=== PATIENT | male | born 1945 | race Caucasian/White ===

== ENCOUNTER 2017-12-12 08:47 | Emergency (ER) | payer OTHER ==
[~2017-12-12] VITALS: Ht 172.7 cm; Wt 102.1 kg
[2017-12-12 09:39] LABS: ABSOLUTE BASOPHIL COUNT 0 /CUMM (0.0-0.2); ABSOLUTE EOSINOPHIL COUNT 0.1 /CUMM (0.0-0.7); ABSOLUTE GRANULOCYTE CT 2.9 /CUMM (1.4-6.5); ABSOLUTE LYMPH COUNT 1.6 /CUMM (1.2-3.4); ABSOLUTE MONOCYTE COUNT 0.4 /CUMM (0.10-0.60); BASOPHIL % 0.4 % (0.0-2.0); EOSINOPHIL % 2.9 % (0-5); MEAN CORPUSCULAR HGB 32.9 PG (27.0-31.0); MEAN CORPUSCULAR HGB CONC 33.6 G/DL (33.0-37.0); MEAN CORPUSCULAR VOLUME 97.9 FL (80.0-94.0); MEAN PLATELET VOLUME 8.2 FL (7.4-10.4); PLATELET COUNT 177 /CUMM (130-400); RBC DISTRIBUTION WIDTH 13.3 % (11.5-14.5); RED BLOOD CELL CT 4.59 /CUMM (4.70-6.10); WHITE BLOOD CELL COUNT 5.1 /CUMM (4.8-10.8)
--- NOTE | 2017-12-12 11:30 | CT SCAN REPORT ---
EXAMINATION: CT HEAD WITHOUT CONTRAST CLINICAL INFORMATION: Dizziness. COMPARISON: None TECHNIQUE: Contiguous axial imaging was performed from the skull base to vertex without intravenous administration of contrast. DLP: 614 mGy-cm FINDINGS: There is no evidence of acute intracranial hemorrhage or territorial infarction. No abnormal mass effect or midline shift is seen. Martinez to white matter differentiation is well preserved. No extra-axial fluid collections are identified. The ventricles are normal in size. There is no abnormal attenuation within the brain parenchyma. The osseous structures and soft tissues are normal. The mastoid air cells and visualized portions of the paranasal sinuses are well aerated. IMPRESSION: No acute intracranial process seen.
--- NOTE | 2017-12-12 11:40 | ED AMS/SEIZURE/WEAK/DIZZY ---
History of Present Illness General Chief Complaint: Dizziness Stated Complaint: DIZZINESS Source: patient Exam Limitations: no limitations Vital Signs & Intake/Output Vital Signs & Intake/Output Vital Signs Date Time Temp Pulse Resp B/P B/P Pulse O2 O2 Flow FiO2 Mean Ox Delivery Rate 12/12 1328 56 18 146/82 12/12 1207 175/97 12/12 1054 97.0 55 20 175/97 100 Room Air 12/12 0921 97.7 51 20 206/108 96 Room Air Allergies Coded Allergies: Penicillins (UNKNOWN PER PT HAD A REACTION A KID 12/12/17) venom-honey bee (SOB 12/12/17) Reconcile Medications Aspirin (Ecotrin*) 81 MG TABLET.DR 1 TAB PO DAILY HEART/BLOOD (Reported) Losartan Potassium (Cozaar) 50 MG TABLET 1 TAB PO DAILY HTN Meclizine HCl 25 MG TABLET 1 TAB PO TIDPRN DIZZINESS Triage Note: 72 YO MALE TO TRIAGE FOR EVAL OF DIZZINESS IN THE AM X1 WEEK. PT REPORTS WHEN HE WAKES UP IN THE AM OR IN THE MIDDLE OF THE NIGHT HE IS DIZZY UPON MOVMENT, REPORTS THE ROOM IS SPINNING WHEN THIS OCCURS. DENIES ANY PAIN. REPORTS +DIAPOHETIC WHEN THIS EPISODE OCCURED THIS AM. PT TAKENF OR EKG UPON ARRIVAL TO ED. PT DENIES MEDICAL HISTORY. Triage Nurses Notes Reviewed? yes Onset: Abrupt Duration: day(s):, intermittent Timing: recent history No Modifying Factors: none HPI: 72-year-old male comes into the emergency room for further evaluation of dizziness. Patient reports she's been waking up every day this week with dizziness. Today was worse. He feels that the room is spinning around and he feels like he is walking on a boat. Denies any chest pain shortness of breath. He had an episode of diaphoresis this morning with the symptoms. Nothing seems to make it better or worse. Denies any syncopal episodes. Comes in for further evaluation. (Tushar Landrum) Past History Travel History Traveled to [place] past 21 day No Medical History Any Pertinent Medical History? see below for history Neurological: NONE EENT: NONE Cardiovascular: NONE Respiratory: NONE Gastrointestinal: NONE Hepatic: NONE Renal: NONE Musculoskeletal: NONE Psychiatric: NONE Endocrine: NONE Blood Disorders: NONE Cancer(s): NONE WORD PROCESSING SPECIALIST/Reproductive: NONE Surgical History Surgical History: non-contributory Psychosocial History What is your primary language [place]ib[place]ian Tobacco Use: Never used Family History Hx Contributory? No (Tushar Landrum) Review of Systems Review of Systems Constitutional: Reports: no symptoms. EENTM: Reports: no symptoms. Respiratory: Reports: no symptoms. Cardiovascular: Reports: see HPI. GI: Reports: no symptoms. Genitourinary: Reports: no symptoms. Musculoskeletal: Reports: no symptoms. Skin: Reports: no symptoms. Neurological/Psychological: Reports: see HPI. Hematologic/Endocrine: Reports: no symptoms. Immunologic/Allergic: Reports: no symptoms. All Other Systems: Reviewed and Negative (Tushar Landrum) Physical Exam Physical Exam General Appearance: well developed/nourished, no apparent distress, alert, awake Head: atraumatic, normal appearance Eyes: Bilateral: normal appearance, PERRL, EOMI, other (horizontal nystagmus). 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 Yes CVA/TIA Diagnosis No Sepsis Present: No Sepsis Focused Exam Completed? No (Tushar Landrum) Progress Differential Diagnosis: arrythmia, benign positional vertigo, CVA/stroke, drug intoxication, electrolyte imbalance, intracranial Hem., intracranial mass/tumor, Meniere's disease, postural hypotension, presyncope, vertebrobasilar insuff Plan of Care: Orders Procedure Date/time Status TROPONIN LEVEL 12/12 1215 Complete EKG 12/12 1215 Active Telemetry/[employer] 12/12 1155 Active TROPONIN LEVEL 12/12 0854 Complete COMPREHENSIVE METABOLIC PANEL 12/12 0854 Complete CBC WITHOUT DIFFERENTIAL 12/12 0854 Complete EKG 12/12 0848 Active Laboratory Tests 12/12/17 1223: Troponin I < 0.01 12/12/17 0913: Anion Gap 11, Estimated GFR > 60, BUN/Creatinine Ratio 21.8, Glucose 123 H, Calcium 9.7, Total Bilirubin 0.6, AST 24, ALT 34, Alkaline Phosphatase 98, Troponin I < 0.01, Total Protein 7.4, Albumin 4.6, Globulin 2.8, Albumin/ Globulin Ratio 1.6, CBC w Diff NO MAN DIFF REQ, RBC 4.59 L, MCV 97.9 H, MCH 32.9 H, MCHC 33.6, RDW 13.3, MPV 8.2, Gran % 57.0, Lymphocytes % 31.9, Monocytes % 7.8, Eosinophils % 2.9, Basophils % 0.4, Absolute Granulocytes 2.9, Absolute Lymphocytes 1.6, Absolute Monocytes 0.4, Absolute Eosinophils 0.1, Absolute Basophils 0 Diagnostic Imaging: Viewed by Me: CT Scan. Discussed w/RAD: CT Scan. Radiology Impression: PATIENT: SABINO MICHAELS PRESENT AGE: 72 PATIENT ACCOUNT NO: [id number] : 46 LOCATION: [facility] ORDERING PHYSICIAN: Shawn JOHN SERVICE DATE: 12/12/17 EXAM TYPE: CAT - CT HEAD WO IV CONTRAST EXAMINATION: CT HEAD WITHOUT CONTRAST CLINICAL INFORMATION: Dizziness. COMPARISON: None TECHNIQUE: Contiguous axial imaging was performed from the skull base to vertex without intravenous administration of contrast. DLP: 614 mGy-cm FINDINGS: There is no evidence of acute intracranial hemorrhage or territorial infarction. No abnormal mass effect or midline shift is seen. Martinez to white matter differentiation is well preserved. No extra-axial fluid collections are identified. The ventricles are normal in size. There is no abnormal attenuation within the brain parenchyma. The osseous structures and soft tissues are normal. The mastoid air cells and visualized portions of the paranasal sinuses are well aerated. IMPRESSION: No acute intracranial process seen. DICTATED BY: Edward Gusman MD DATE/TIME DICTATED:12/12/171121 USABILITY STRATEGIST:LULY DATE/TIME TRANSCRIBED:12/12/171121 CONFIDENTIAL, DO NOT COPY WITHOUT APPROPRIATE AUTHORIZATION. <Electronically signed in Other Vendor System> SIGNED BY: Edward Gusman MD 12/12/17 1130 Initial ED EKG: normal sinus rhythm, rate (58) Repeat EKG: unchanged (Tushar Landrum) Departure Departure Disposition: HOME OR SELF CARE Condition: Stable Clinical Impression Primary Impression: Vertigo Secondary Impressions: Hypertension Referrals: Nyla KERR,Sweetie Wilcox (PCP/Family) Prabhjot KERR,Marcus Perez Additional Instructions: [facility] Take losartan and meclizine as prescribed. Follow up with sapphire stylus grinder in ear nose and throat doctor. Return if any other concerns worsening symptoms. Please go over all results of today's visit with your primary care doctor. Contact your primary care doctor to let them know you were here in the emergency room. There may be nonspecific findings which may not be related to your visit today here in the emergency room but may require further evaluation and chronic monitoring by your primary care doctor. If you had a laceration today the chance of foreign body always remains. You should follow-up with your primary care doctor for recheck in 3-5 days for a wound check. If you had an x-ray done there is a chance that a fracture could have been missed on initial read and you should follow-up with your primary care doctor for repeat x-rays if symptoms persist. If your blood pressure was elevated here in the emergency room please have rechecked by [facility] primary care doctor within the next 48. If you were prescribed a narcotic here in the emergency room or any type of controlled substances you're not allowed to drive while taking this medication or operate any type of heavy machinery. Narcotics can make you feel lightheaded dizziness nausea and can cause constipation. You may need to hand picker a stool softener. Thank you for choosing emergency room. Please return to the emergency room immediately if you have any other concerns worsening of symptoms. Departure Forms: Customer Survey General Discharge Information Prescriptions: Current Visit Scripts Losartan Potassium (Cozaar) 1 TAB PO DAILY #30 TAB Meclizine HCl 1 TAB PO TIDPRN #30 TAB Comments 12/12/2017 2:10:27 PM Patient's symptoms significantly improved. Patient clinically looks well. Patient is in no apparent distress. Patient is nontoxic-appearing. Symptoms are most consistent with benign positional vertigo. dizziness improved after meclizine. Patient was reevaluated multiple times. No chest pain or shortness of breath. He had an episode of diaphoresis which is why he was kept for 2 troponins which were both negative. He was recommended to follow back up with his sapphire stylus grinder for the bradycardia but this does not appear to be the source of his dizziness. He understands and agrees a plan of care. Reevaluated multiple times. Patient was seen and evaluated by Dr. MELTON. Started on blood pressure medications. Blood pressure improved. He has not had any chest pain or shortness of breath (Tushar Landrum) PA/WEATHER REPORTER Co-Sign Statement Statement: ED Attending supervision documentation- [X] I saw and evaluated the patient. I have also reviewed all the pertinent lab results and diagnostic results. I agree with the findings and the plan of care as documented in the PA's/WEATHER REPORTER's documentation. [] I have reviewed the ED Record and agree with the PA's/WEATHER REPORTER's documentation. [] Additions or exceptions (if any) to the PAs/WEATHER REPORTER's note and plan are summarized below: 72 yo male comes in for dizziness. The patient was normal and examined him. He had no reproducible dizziness. Based on the initial exam by Roberto, the patient had reproducible vertigo. He had completely normal neurological exam. The patient is initially hypertensive. Likely secondary to his symptoms. The patient is a known hypertensive and is supposed to be on antihypertensives but has not been taking those medications. I have counseled him about it in great detail. The patient has been asked to monitor her blood pressure and started on antihypertensives. He has also been asked to follow-up with the PCP. Otherwise the patient's workup including a head CT were negative. He has appropriate neurological exam. The presentation is inconsistent with a cardiopulmonary event or an acute stroke. (Sheri KERR,[facility])
[2017-12-12] MEDS ORDERED: ASPIRIN EC81 M1 PO (13:23)
[2017-12-12 13:28] VITALS: BP 146/82
[2017-12-12] MEDS ORDERED: COZAAR50 M1 PO (13:30)
[2017-12-12] MEDS ORDERED: MECLIZINE HCL25 MG PO (13:30)
== END 2017-12-12 13:46 ==
LOC: ERH 08:47
PROVIDERS: Emergency Medicine
DX: R42 Dizziness and giddiness (principal); I10 Essential (primary) hypertension
CPT/HCPCS: 93005; 93010